=== PATIENT | male | born 2000 | race Caucasian/White ===

== ENCOUNTER 2021-04-02 11:05 | Inpatient (IN) | payer BC, SELFPAY ==
[2021-04-02 11:51] LABS: #Lymphocytes 1.7 thou/uL (1.20-3.40); #Neutrophils 12.3 thou/uL (1.40-6.50); %Basophils 0.1 % (0.0-1.0); %Eosinophils 0.2 % (0.0-10.0); %Lymphocytes 11.2 % (28.0-48.0); %Monocytes 6.3 % (0.0-4.0); %Neutrophils 82.2 % (31.0-61.0); Hemoglobin 16.1 g/dL (14.0-18.0); Mean Corpuscular HGB CONC 33.9 g/dL (32.0-36.0); Mean Corpuscular Volume 91.6 fL (78.0-98.0); Mean Platelet Volume 7.6 fL (7.4-10.4); Platelet Count 327 thou/uL (130-400); RBC Distribution Width 11.9 % (11.5-14.5); White Blood Cell (WBC) Count 14.9 thou/uL (4.8-10.8)
[2021-04-02 12:21] LABS: Anion Gap 21 mmol/L (10-20); BUN (Urea Nitrogen) 26 mg/dL (8.9-20.6); Calc. Creatinine Clearance 0 mL/min (70-130); Calcium 10.6 mg/dL (7.8-10.44); Carbon Dioxide 22 mmol/L (22-29); Chloride 99 mmol/L (98-107); Glucose 74 mg/dL (70-105); Potassium 4.3 mmol/L (3.5-5.1); Sodium 138 mmol/L (136-145)
[2021-04-02 15:00] LABS: Magnesium 2.1 mg/dL (1.7-2.2)
[2021-04-02] MEDS ORDERED: Sodium Chloride 0.9% 1,000 ML IV SCH ×2 (15:15→17:02)
[2021-04-02 15:27] LABS: Bacteria/HPF None Seen HPF (None Seen); Bilirubin Negative (Negative); Blood, Urine 1+ (Negative); Clarity Clear (Clear); Glucose, Urine (Dipstick) Normal (Negative); Ketone, Urine 100 mg/dL (Negative); Leukocyte Negative Leu/uL (Negative); Nitrite Negative (Negative); Protein, Urine (Dipstick) 30 mg/dL (Neg-Trace); RBC/HPF 0-3 HPF (0-3); Specific Gravity, Urine 1.019 (1.002-1.036); Squamous Epithelial 0-3 HPF (0-3); Urobilinogen Normal mg/dL (Less than 2); WBC/HPF None Seen HPF (0-3); pH, Urine 5.5 (5.0-9.0)
[2021-04-02 15:29] LABS: Amphetamine Not Detected (NotDetected); Barbiturates Screen Not Detected (NotDetected); Benzodiazepine Screen Not Detected (NotDetected); Cocaine Metabolite Screen Not Detected (NotDetected); Methadone Not Detected (NotDetected); Methamphetamine Not Detected (NotDetected); Opiate Screen Not Detected (NotDetected); Oxycodone Screen Not Detected (NotDetected); Phencyclidine (PCP) Not Detected (NotDetected); THC/Cannabinoid Screen Detected (NotDetected); Tricyclic Screen Not Detected (NotDetected)
[2021-04-02 16:11] LABS: SARS-CoV-2 NAA Rapid Test Not Detected (NotDetected)
[2021-04-02 16:22] LABS: Troponin I Less than 0.010 ng/mL (< 0.028)
[2021-04-02] MEDS ORDERED: Ondansetron ODT 4 MG TAB PO PRN (18:21)
[2021-04-02] MEDS ORDERED: Acetaminophen 325 MG TAB PO PRN (18:21)
[2021-04-02 19:28] LABS: Troponin I Less than 0.010 ng/mL (< 0.028)
[2021-04-02 20:19] VITALS: BMI 21.4
[2021-04-02] MEDS: Sodium Chloride 0.9% 1,000 ML IV SCH (20:57)
[2021-04-03] MEDS: Sodium Chloride 0.9% 1,000 ML IV SCH ×5 (01:30→21:21)
[2021-04-03 04:57] LABS: #Eosinphils 0.2 thou/uL (0.0-0.7); #Lymphocytes 2.9 thou/uL (1.20-3.40); #Monocytes 0.9 thou/uL (0.11-0.59); #Neutrophils 7.5 thou/uL (1.40-6.50); %Basophils 0.4 % (0.0-1.0); %Eosinophils 1.4 % (0.0-10.0); %Lymphocytes 25.1 % (28.0-48.0); %Monocytes 7.8 % (0.0-4.0); %Neutrophils 65.3 % (31.0-61.0); Hemoglobin 13.4 g/dL (14.0-18.0); Mean Corpuscular HGB CONC 35.4 g/dL (32.0-36.0); Mean Corpuscular Hemoglobin 32.8 pg (25.0-35.0); Mean Corpuscular Volume 92.7 fL (78.0-98.0); Mean Platelet Volume 7.6 fL (7.4-10.4); Platelet Count 250 thou/uL (130-400); RBC Distribution Width 11.8 % (11.5-14.5); Red Blood Cell (RBC) Count 4.09 mill/uL (4.00-5.20); White Blood Cell (WBC) Count 11.4 thou/uL (4.8-10.8)
[2021-04-03 06:26] LABS: CK (CPK) 24138 U/L (30-200)
[2021-04-03 06:39] LABS: Anion Gap 10 mmol/L (10-20); BUN (Urea Nitrogen) 16 mg/dL (8.9-20.6); Calc. Creatinine Clearance 106 mL/min (70-130); Calcium 8.6 mg/dL (7.8-10.44); Carbon Dioxide 23 mmol/L (22-29); Cardiac Risk 3.7 (Less than 4.5); Chloride 108 mmol/L (98-107); Cholesterol 123 mg/dl (< 200 Desired); Glucose 84 mg/dL (70-105); HDL Cholesterol 33 mg/dL (>60 Neg Risk); LDL Cholesterol, Calculated 80 mg/dL; Potassium 4.2 mmol/L (3.5-5.1); Sodium 137 mmol/L (136-145); Triglycerides 51 mg/dL (Less than 150)
[2021-04-03] MEDS ORDERED: Cepastat Lozenges 1 LOZ PO PRN (07:42)
[2021-04-03] MEDS ORDERED: Nitroglycerin 0.4 MG TAB (25 Tab Bottle) SL PRN (07:42)
[2021-04-03] MEDS ORDERED: Calcium Carbonate 500 MG ChewTAB PO PRN (07:42)
[2021-04-03] MEDS ORDERED: Senokot S 8.6-50 MG TAB PO PRN (07:42)
[2021-04-03] MEDS ORDERED: Acetaminophen 500 MG TAB PO PRN (07:42)
[2021-04-03] MEDS ORDERED: Ondansetron PF 4 MG/2 ML Vial IVP PRN (07:42)
[2021-04-03] MEDS ORDERED: Benzonatate 100 MG CAP PO PRN (07:42)
[2021-04-03] MEDS ORDERED: Sodium Chloride 0.65% Nasal 44 ML BOT EA NARE PRN (07:42)
[2021-04-03] MEDS ORDERED: Bisacodyl 5 MG TAB PO PRN (07:42)
[2021-04-04] MEDS: Sodium Chloride 0.9% 1,000 ML IV SCH ×5 (02:30→20:37)
[2021-04-04 07:50] LABS: ALT (SGPT) 83 U/L (8-55); AST (SGOT) 272 U/L (5-34); Albumin 3.8 g/dL (3.5-5.0); Alkaline Phosphatase 40 U/L (50-130); Anion Gap 11 mmol/L (10-20); BUN (Urea Nitrogen) 10 mg/dL (8.9-20.6); Bilirubin, Total 0.9 mg/dL (0.2-1.2); Calc. Creatinine Clearance 133 mL/min (70-130); Calcium 8.8 mg/dL (7.8-10.44); Carbon Dioxide 23 mmol/L (22-29); Chloride 109 mmol/L (98-107); Globulin 2.4 g/dL (2.4-3.5); Glucose 87 mg/dL (70-105); Potassium 3.8 mmol/L (3.5-5.1); Protein, Total 6.2 g/dL (6.0-8.3); Sodium 139 mmol/L (136-145)
[2021-04-04 08:15] LABS: CK (CPK) 16974 U/L (30-200)
[2021-04-05] MEDS: Sodium Chloride 0.9% 1,000 ML IV SCH (06:23)
[2021-04-05 07:13] LABS: ALT (SGPT) 73 U/L (8-55); AST (SGOT) 169 U/L (5-34); Albumin 3.8 g/dL (3.5-5.0); Alkaline Phosphatase 39 U/L (50-130); Anion Gap 10 mmol/L (10-20); BUN (Urea Nitrogen) 11 mg/dL (8.9-20.6); Bilirubin, Total 0.6 mg/dL (0.2-1.2); Calc. Creatinine Clearance 118 mL/min (70-130); Calcium 9.2 mg/dL (7.8-10.44); Carbon Dioxide 29 mmol/L (22-29); Chloride 107 mmol/L (98-107); Globulin 2.3 g/dL (2.4-3.5); Glucose 95 mg/dL (70-105); Potassium 4.4 mmol/L (3.5-5.1); Protein, Total 6.1 g/dL (6.0-8.3); Sodium 142 mmol/L (136-145)
[2021-04-05 07:38] LABS: CK (CPK) 8906 U/L (30-200)
[2021-04-05 09:42] VITALS: BP 117/61; TEMP 98
== END 2021-04-05 13:11 | disposition home or self-care (01) | DRG 683 ==
LOC: ERS 11:05 → ERHOLD 14:47 → OBSVTOIN 14:47 → 2NO 19:30 → ONC 04-03 17:21
PROVIDERS: ADMIT Internal Medicine; ATTEND Internal Medicine
DX: N17.9 Acute kidney failure, unspecified (principal); M62.82 Rhabdomyolysis; Z20.822 Contact with and (suspected) exposure to COVID-19
CPT/HCPCS: 0240U; 36415; 71045; 76770; 80048; 80053; 80061; 80306; 81003; 81015; 82550; 83735; 84443; 84484; 85025; 85379; 93005; 93306; G0378